=== PATIENT | male | born 1980 | race Caucasian/White ===

== ENCOUNTER 2019-11-09 19:09 | Emergency (ER) | payer MEDICAID ==
[~2019-11-09] VITALS: Ht 175.3 cm; Wt 104.3 kg
[2019-11-09 19:40] VITALS: BP_SYST 120
--- NOTE | 2019-11-09 22:03 | NUR ---
Patient to ER bed h1 for evaluation. Side rails up.
--- NOTE | 2019-11-09 22:40 | NUR ---
Pt AAOx4 ambulated into ED c/o pain to R throat x few days. Pt recently completed Azithromycin with mild relief. No other injuries/complaints per pt/noted. Will continue to monitor.
--- NOTE | 2019-11-09 22:56 | NUR ---
ER Dr. Garcia at bedside examining patient.
--- NOTE | 2019-11-09 23:03 | NUR ---
Strep throat sample collected and sent to lab.
--- NOTE | 2019-11-10 00:15 | NUR ---
Patient given written and verbal discharge instructions and verbalizes understanding. ER MD Garcia discussed with patient the results and treatment provided. Patient in stable condition. ID arm band removed. No Rx given. Patient educated on pain management and to follow up with PMD. Pain Scale 0. Opportunity for questions provided and answered. Medication side effect fact sheet provided.
[2019-11-10 00:16] VITALS: BP_SYST 133
== END 2019-11-10 00:15 | disposition home or self-care (01) ==
LOC: SED 19:09
DX: J02.9 Acute pharyngitis, unspecified (principal); I10 Essential (primary) hypertension; K12.0 Recurrent oral aphthae; F12.90 Cannabis use, unspecified, uncomplicated; Z88.0 Allergy status to penicillin
CPT/HCPCS: 36415; 86403; 87081; 93005; 99284